=== PATIENT | male | born 1990 | race Caucasian/White ===

== ENCOUNTER 2020-04-21 20:08 | Emergency (ER) | payer BC ==
[~2020-04-21] VITALS: Ht 185.4 cm; Wt 122.5 kg
[2020-04-21 20:17] VITALS: Ht 185.4 cm; Wt 122.5 kg
[2020-04-21 20:42] LABS: BASOPHILS 0.1 % (0-2); EOSINOPHILS 1.3 % (0-7); HEMATOCRIT 40.5 % (42.0-54.0); HEMOGLOBIN 14.1 g/dL (13.5-17.5); IMMATURE GRANULOCYTES 0.1 % (0-5); LYMPHOCYTES 28.1 % (15-50); MCH 28.1 pg (26.0-34.0); MCHC 34.8 g/dL (31.0-37.0); MCV 80.7 fL (80.0-100.0); MEAN PLATELET VOLUME 8.8 fL (7.4-10.4); MONOCYTES 8.8 % (2-11); NEUTROPHILS 61.6 % (40-80); PLATELET COUNT 252 10x3/uL (130-400); RBC 5.02 10x6/uL (4.20-6.10); RDW 12.4 % (11.5-14.5); WBC 9.1 10x3/uL (4.8-10.8)
[2020-04-21 20:51] LABS: CALC OSMOLALITY 278 mosm/kg (275-300); CALCIUM 9.4 mg/dL (8.5-10.1); CARBON DIOXIDE 26.8 mmol/L (21.0-32.0); CHLORIDE - SERUM 103 mmol/L (98-107); CREATININE - SERUM 1.3 mg/dL (0.6-1.3); GLUCOSE 143 mg/dL (74-106); POTASSIUM - SERUM 3.7 mmol/L (3.5-5.1); SODIUM 138 mmol/L (136-145); UREA NITROGEN 16 mg/dL (7-18); eGFR NON AFRICAN AMERICAN 69 mL/min (90-120)
[2020-04-21 21:00] LABS: ALBUMIN 3.9 g/dL (3.4-5.0); ALKALINE PHOSPHATASE 89 U/L (30-120); ALT (SGPT) 118 U/L (10-68); AMYLASE - SERUM 45 U/L (25-115); BILIRUBIN - TOTAL 0.61 mg/dL (0.2-1.3); LIPASE 123 U/L (73-393); TROPONIN-I < 0.017 ng/mL (0.000-0.060)
[2020-04-21 21:12] LABS: BILIRUBIN NEGATIVE (NEGATIVE); GLUCOSE NEGATIVE (NEGATIVE); KETONE NEGATIVE (NEGATIVE); NITRITE NEGATIVE (NEGATIVE); UROBILINOGEN NORMAL (NORMAL)
[2020-04-21 21:23] LABS: BACTERIA FEW /hpf (NEGATIVE); WHITE CELLS - URINE 0-5 /hpf (NEGATIVE)
[2020-04-22 01:31] VITALS: BP 127/72
[2020-04-25 03:07] LABS: HEPATITIS C ANTIBODY 0.2 (0.0-0.9)
== END 2020-04-22 03:02 | disposition other institution (70) ==
LOC: D.ER 20:08
PROVIDERS: Family Medicine
DX: N13.2 Hydronephrosis with renal and ureteral calculous obstruction (principal); R10.30 Lower abdominal pain, unspecified